=== PATIENT | male | born 2000 | race Hispanic/Latino ===

== ENCOUNTER 2018-03-25 11:41 | Emergency (ER) | payer SELFPAY ==
[2018-03-25] MEDS ORDERED: Adacel (T-DAP) 0.5 ML VIAL ONE (11:44)
[2018-03-25] MEDS ORDERED: Fentanyl 100 MCG/2 ML VIAL ONE (11:53)
--- NOTE | 2018-03-25 12:10 | RAD ---
CHEST 1 VIEW: Date: 03/25/18 HISTORY: Chest injury. FINDINGS: Cardiac silhouette is magnified by projection. Pulmonary vasculature is unremarkable. Mediastinum is midline. No lobar consolidation or evidence of pneumothorax. IMPRESSION: No active cardiopulmonary abnormalities are demonstrated. POS: JOEYH
--- NOTE | 2018-03-25 12:35 | RAD ---
LEFT SHOULDER 3 VIEWS: Date: 03/25/18 HISTORY: Trauma. Left shoulder pain. FINDINGS/IMPRESSION: No acute fracture or dislocation is seen. There is soft tissue air and couple of BBs in the soft tiss ues, likely from recent injury. POS: SHE[facility]BY
== END 2018-03-25 13:24 | disposition home or self-care (01) ==
LOC: ERS 11:41
DX: S41.002A Unspecified open wound of left shoulder, initial encounter (principal); W34.00XA Accidental discharge from unspecified firearms or gun, initial encounter
CPT/HCPCS: 71045; 90471; 90715; 96374; J3010